=== PATIENT | female | born 1995 | race Two or more races ===

== ENCOUNTER 2025-03-04 06:24 | Emergency (ER) | payer MEDICAID, SELFPAY ==
[2025-03-04 06:27] VITALS: BP 126/84; PULSE 80; TEMP 36.8; O2SAT 99
--- NOTE | 2025-03-04 06:44 | EDNOTE_ITS ---
Upper Extremity Injury RME/HPI General Chief Complaint: Hand/Wrist Problems Stated Complaint: HAND PROBLEM Time Seen by Provider: 03/04/25 06:31 Source: patient Arrival date/time: 03/04/25 06:24 29-year-old female with no known medical history presents to the emergency room with a chief complaint of her left index finger being stuck. Patient has very limited range of motion to her left index finger. Patient states this has been going on for the last 6 months and has progressively gotten worse. Patient denies any trauma. Mode of arrival: ambulatory Limitations: no limitations Related Data Home Medications ?Medication ?Instructions ?Recorded ?Confirmed vit no.95-ferrous 1 tab PO QDAY 01/31/1806/27 fumarate 28 mg-folic acid 800 mcg tablet () ferrous sulfate 325 mg (65 mg 325 mg PO BID 03/06/19 1 iron) tablet (iron) Previous Rx's ?Medication ?Instructions ?Recorded cephalexin 500 mg capsule 500 mg PO BID 7 days #14 cap s 03/04/25 Allergies Allergy/AdvReac Type Severity Reaction Status Date / Time No Known Allergies Allergy Verified 03/04/25 06:31 Review of Systems Review of Systems Systems Reviewed: All systems reviewed, normal except as documented Constitutional Constitutional: Reports system reviewed and no additional complaints, except as documented, Denies fatigue, Denies fever(s), Denies headache(s) and Denies weakness Eyes Eyes: Reports system reviewed and no additional complaints, except as documented, Denies blurry vision and Denies change in vision ENT Ears, Nose, Mouth, and Throat: Reports system reviewed and no additional complaints, except as documented, Denies otalgia, Denies headache(s), Denies nasal congestion, Denies throat swelling and Denies vertigo Cardiovascular Cardiovascular: Reports system reviewed and no additional complaints, except as documented, Denies chest pain, Denies dyspnea and Denies dyspnea on exertion Respiratory Respiratory: Reports system reviewed and no additional complaints, except as documented, Denies chest congestion, Denies cough, Denies dyspnea, Denies dyspnea on exertion and Denies wheezing Gastrointestinal Gastrointestinal: Reports system reviewed and no additional complaints, except as documented, Denies abdominal pain, Denies cramping, Denies nausea and Denies vomiting Genitourinary Genitourinary: Reports system reviewed and no additional complaints, except as documented Musculoskeletal Musculoskeletal: Reports system reviewed and no additional complaints, except as documented, Reports arthralgias, Denies back pain, Denies joint swelling and Reports limited range of motion Integumentary/Breasts Skin/Breast: Reports system reviewed and no additional complaints, except as documented and Denies wounds Neurologic Neurologic: Reports system reviewed and no additional complaints, except as documented, Denies confusion, Denies headache(s), Denies lack of coordination, Denies vertigo and Denies weakness Psychiatric Psychiatric: Reports system reviewed and no additional complaints, except as documented, Denies anxiety, Denies confusion, Denies depression, Denies paranoia, Denies suicidal ideation and Denies tactile hallucinations Endocrine Endocrine: Reports system reviewed and no additional complaints, except as documented and Denies fatigue Hematologic/Lymphatic Hematologic/Lymphatic: Reports system reviewed and no additional complaints, e xcept as documented and Denies lymphadenopathy Allergic/Immunologic Allergic/Immunologic: Reports system reviewed and no additional complaints, except as documented, Denies throat swelling, Denies urticaria and Denies wheezing ED Exam General Limitations: Present no limitations General appearance: Present alert and in no apparent distress Head Head exam: Present atraumatic Eye Eye exam: Present normal appearance ENT ENT exam: Present normal exam Neck Neck exam: Present normal inspection Chest Chest inspection: Present normal inspection Respiratory Respiratory exam: Present normal lung sounds bilaterally Cardiovascular Cardiovascular exam: Present regular rate Abdominal Exam Abdominal exam: Present soft and normal bowel sounds Extremities Exam Extremities exam: Present normal inspection and full ROM Expanded Upper Extremity Exam Shoulder exam: Present normal inspection Arm exam: Present normal inspection Elbow exam: Present normal inspection Forearm/Wrist exam: Present normal inspection Hand exam: Present tenderness; Absent full ROM Vascular exam: Normal capillary refill, radial pulse, ulnar pulse and brachial pulse Back Exam Back exam: Present normal inspection and full ROM Neurological Exam Neurological exam: Present alert, oriented X3 and CN II-XII intact Psychiatric Psychiatric exam: Present normal affect and normal mood Skin Skin exam: Present warm, dry, intact and normal color Course Quality Measures none Vital Signs Vital signs: Vital Signs Temperature 98.2 F 03/04/25 06:27 Pulse Rate 80 03/04/25 06:27 Blood Pressure 126/84 03/04/25 06:27 Pulse Oximetry (%) 99 03/04/25 06:27 Oxygen Delivery Method Room Air 03/04/25 06:27 Extremity Injury MDM Narrative MDM Narrative:: 29-year-old female with no known medical history presents to the emergency room with a chief complaint of her left index finger being stuck. Patient has very limited range of motion to her left index finger. Patient states this has been going on for the last 6 months and has progressively gotten worse. Patient denies any trauma. Patient is hemodynamically stable and in no apparent distress. She is afebrile not tachycardic not tachypneic Physical examination shows limited range of motion to her left index finger. The patient is able to move it but states it is a lot more sore and numb. Patient states the injury occurred yesterday while she was mopping her floors, but states this has been a long going injury. Patient states about 6 months ago she was pierced with a thorn from a lemon tree while working. Patient states since then her injury has progressively gotten worse. Patient denies any trauma to the area or any foreign body being in there. Patient was discharged and educated to follow-up with primary care provider in the next 24 to 48 hours and return to the emergency room for any evidence of worsening signs or symptoms Patient data External records reviewed:: [facility] previous records Clinical information provided by:: patient Social determinants that could affect healthcare access:: none Patient has the following chronic illnesses:: No chronic illness How is presenting disease/condition affected by chronic disease/condition?: no chronic disease Evaluation data The following diagnostics were reviewed and interpreted by me:: lab results and radiology exam(s) Lab and/or radiology exams considered but not ordered:: Labs and radiology exams considered in order Interpretation Summary: N/A Medications / Prescriptions Medications or Prescriptions considered but not ordered:: No medication given Medication administrations:: No medication given Consultations Consultation(s) initiated? (list below): No Diagnosis Upper Extremity Injury Differential Diagnosis: finger sprain and other Most likely diagnosis given after review of the tests above:: Tendinitis Admission Indicated Admission indicated?: not indicated Admission Request Was there a request for admission?: No Disposition Plan Disposition Plan: Discharge Discharge Attestation Discharge Attestation: The patient and all family members were given an opportunity to ask questions and understood the discharge instructions. Discharge instructions specifically effects, indications for sooner follow up or return to the emergency department, and the expected course of current diagnosis. Patient condition: Stable Discharge Plan Plan Patient Disposition: HOME (Self Care) Discharge Disposition comment: Stable Prescriptions/Referrals Prescriptions/Med Rec: New cephalexin 500 mg capsule 500 mg PO BID 7 Days Qty: 14 0RF No Action PNV cmb#95-ferrous fumarate-FA [] 28 mg iron- 800 mcg Tablet 1 tab PO QDAY ferrous sulfate [iron] 325 mg (65 mg iron) Tablet 325 mg PO BID Problem List Clinical Impression: Tendinitis Patient/Caregiver Discharge Instructions Additional Instructions: Por favor, consulte con [facility]oya m?dico de cabecera en las pr?ximas 24 a 48 horas. Debe consultar con montoya m?dico de cabecera para que le derive a un especialista en shanita. Se enviaron antibi?ticos a montoya farmacia. Si observa cualquier signo de empeoramiento de los signos o s?ntomas, acuda a urgencias de inmediato. Print Language: Citizen Of [place] Stand Alone Forms: Debora Award Info., Work/School Release, Patient Portal Info Letter PA/ASSISTANT ASSOCIATE PROFESSOR Supervising Physician PA/ASSISTANT ASSOCIATE PROFESSOR Supervising Physician: Dr. Munguia
== END 2025-03-04 07:41 | disposition home or self-care (01) ==
LOC: SERX 06:48
PROVIDERS: Emergency Provider Family Medicine; PCP Obstetrics & Gynecology
DX: M77.8 Other enthesopathies, not elsewhere classified (principal)
CPT/HCPCS: 99281